=== PATIENT | female | born 1990 | race African-American/Black ===

== ENCOUNTER 2019-02-19 07:46 | Emergency (ER) | payer BC ==
[~2019-02-19] VITALS: Ht 162.6 cm; Wt 59.0 kg
[2019-02-19 07:46] VITALS: BP_SYST 115
--- NOTE | 2019-02-19 07:46 | NUR ---
BROUGHT BACK TO BED #7 AND TRIAGED. REPORT GIVEN TO EMILIANO
[2019-02-19] MEDS ORDERED: KETOROLAC TROMETHAMINE 60 MG/2 ML VIAL IM ONE (08:00)
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
--- NOTE | 2019-02-19 09:05 | NUR ---
DR JACOBO AT BEDSIDE SPEAKING WITH PT REGARDING XRAY RESULTS.
--- NOTE | 2019-02-19 09:20 | NUR ---
patient is off the unit going to x-ray.
[2019-02-19 09:25] VITALS: BP_SYST 115
--- NOTE | 2019-02-19 09:25 | NUR ---
Patient given written and verbal discharge instructions and verbalizes understanding. ER MD discussed with patient the results and treatment provided. Patient in stable condition. ID arm band removed. Rx of [place] given. Patient educated on pain management and to follow up with PMD. Pain Scale 3/10.Opportunity for questions provided and answered. Medication side effect fact sheet provided.
== END 2019-02-19 09:25 | disposition home or self-care (01) ==
LOC: SED 07:46
DX: S13.4XXA Sprain of ligaments of cervical spine, initial encounter (principal); V43.52XA Car driver injured in collision with other type car in traffic accident, initial encounter; Y93.89 Activity, other specified; Y92.410 Unspecified street and highway as the place of occurrence of the external cause; Y99.8 Other external cause status
CPT/HCPCS: 71045; 72040; 72170; 72220; 81025; 96372; 99283; J1885

== ENCOUNTER 2019-04-20 09:39 | Emergency (ER) | payer BC ==
[~2019-04-20] VITALS: Ht 162.6 cm; Wt 77.1 kg
[2019-04-20 09:47] VITALS: BP_SYST 137
[2019-04-20 12:15] VITALS: BP_SYST 137
== END 2019-04-20 12:15 | disposition home or self-care (01) ==
LOC: SED 09:39
DX: M25.561 Pain in right knee (principal); R03.0 Elevated blood-pressure reading, without diagnosis of hypertension
CPT/HCPCS: 73564; 99283